=== PATIENT | male | born 1950 | race Caucasian/White ===

== ENCOUNTER 2023-07-11 18:32 | Inpatient (IN) ==
[2023-07-11] MEDS ORDERED: IOPAMIDOL 100 ML BOTTLE IV ONE (18:33)
[2023-07-11] MEDS ORDERED: ACETAMINOPHEN 325 MG TABLET PO ONE (19:17)
[2023-07-11] MEDS ORDERED: 0.9 % SODIUM CHLORIDE 1,000 ML IV ONE (19:17)
[2023-07-11 19:41] LABS: POC Calcium, Ionized 1.16 (1.16-1.32); POC Creatinine 0.8 (0.6-1.2); POC Potassium 4.1 (3.3-5.1)
[2023-07-11 20:19] LABS: Basophils # (Auto) 0.01 K/mcL (0.00-0.30); Basophils % (Auto) 0.1 % (0.0-2.0); Eosinophils # (Auto) 0 K/mcL (0.00-0.70); Eosinophils % (Auto) 0 % (0.0-7.0); Hematocrit 34.6 % (40.1-51.0); Hemoglobin 12.1 g/dL (13.7-17.5); Lymphocytes # (Auto) 0.61 K/mcL (1.50-4.80); Lymphocytes % (Auto) 6.2 % (15.5-49.0); Mean Cell Volume 95.8 fL (80.0-100.0); Mean Platelet Volume 9.9 fL (8.8-12.5); Monocytes # (Auto) 0.76 K/mcL (0.10-0.90); Monocytes % (Auto) 7.7 % (1.0-12.0); Neutrophils % (Auto) 85.3 % (38.0-78.0); Platelet Count 184 K/mcL (140-440); RBC 3.61 M/mcL (4.63-6.08); Red Cell Distribution Width 14.3 % (11.5-14.5); WBC 9.9 K/mcL (4.5-11.0)
[2023-07-11 20:22] LABS: Appearance,Urine HAZY (Clear); Bacteria,Urine FEW /hpf (0); Bilirubin,Urine Negative (Negative); Color,Urine YELLOW; Culture Indicated,Urine Yes; Glucose,Urine (UA) Negative (Negative); Ketones,Urine 5 mg/dL (Negative); Leukocyte Esterase,Urine 250 /uL (Negative); Mucus,Urine FEW /hpf; Nitrate,Urine Negative (Negative); Protein,Urine 30 mg/dL (Negative); Urine RBC 88 /hpf (0-3); Urine Squamous Epithelial Cell 0 /hpf (0-4); Urine Transitional Epi Cells < 1 /hpf (0-2); Urine WBC > 182 /hpf (0-4); Urobilinogen,Urine Negative
[2023-07-11 20:34] LABS: ALT/SGPT 12 U/L (<40); AST/SGOT 22 U/L (<40); Albumin 3.3 gm/dL (3.2-5.2); Alkaline Phosphatase 56 U/L (39-117); Bilirubin,Direct 0.5 mg/dL (<0.3)
[2023-07-11 22:44] LABS: Sodium, Urine Random 50 mmol/L
[2023-07-11 22:50] LABS: Osmolality,Urine 334 mOSM/kg (80-1000)
[2023-07-11] MEDS ORDERED: HYDROcodone/APAP 5/325MG TABLET PO ONE (22:58)
[2023-07-11] MEDS ORDERED: cefTRIAXone 2 GM VIAL ONE (23:06)
[2023-07-11] MEDS ORDERED: hydrALAZINE 20 MG/ML VIAL IV PRN (23:06)
[2023-07-11] MEDS: cefTRIAXone 2 GM in DEXTROSE 5% IN WATER 50 ML IV SCH (23:15)
[2023-07-12] MEDS ORDERED: ONDANSETRON 4 MG/2 ML VIAL IV PRN (00:47)
[2023-07-12] MEDS: 0.9 % SODIUM CHLORIDE 1,000 ML IV SCH ×2 (01:04→11:19)
[2023-07-12] MEDS ORDERED: traZODone HCL 50 MG TABLET ONE (01:26)
[2023-07-12] MEDS ORDERED: KETOROLAC 30 MG/ML VIAL ONE (01:26)
[2023-07-12] MEDS: traZODone HCL 50 MG TABLET PO PRN ×2 (01:37→20:37)
[2023-07-12] MEDS: KETOROLAC 30 MG/ML VIAL IV PRN ×3 (01:37→20:36)
[2023-07-12] MEDS: 0.9 % SODIUM CHLORIDE 10 ML SYRINGE IV SCH ×3 (04:03→20:31)
[2023-07-12] MEDS ORDERED: HYDROmorphone 0.5 MG/0.5 ML SYRINGE ONE (04:14)
[2023-07-12] MEDS ORDERED: ACETAMINOPHEN 325 MG TABLET PO ONE (04:14)
[2023-07-12] MEDS: HYDROmorphone 0.5 MG/0.5 ML SYRINGE IV PRN (04:16)
[2023-07-12] MEDS: ACETAMINOPHEN 325 MG TABLET PO PRN (04:17)
[2023-07-12 06:55] LABS: Basophils # (Auto) 0.01 K/mcL (0.00-0.30); Basophils % (Auto) 0.1 % (0.0-2.0); Eosinophils # (Auto) 0.01 K/mcL (0.00-0.70); Eosinophils % (Auto) 0.1 % (0.0-7.0); Hematocrit 32.2 % (40.1-51.0); Hemoglobin 11.4 g/dL (13.7-17.5); Lymphocytes # (Auto) 0.63 K/mcL (1.50-4.80); Lymphocytes % (Auto) 5.8 % (15.5-49.0); Mean Cell Volume 95.5 fL (80.0-100.0); Mean Corpuscular HGB Conc 35.4 g/dL (31.0-36.0); Mean Platelet Volume 9.7 fL (8.8-12.5); Monocytes # (Auto) 0.91 K/mcL (0.10-0.90); Monocytes % (Auto) 8.4 % (1.0-12.0); Neutrophils % (Auto) 85.2 % (38.0-78.0); Platelet Count 159 K/mcL (140-440); RBC 3.37 M/mcL (4.63-6.08); Red Cell Distribution Width 13.8 % (11.5-14.5); WBC 10.8 K/mcL (4.5-11.0)
[2023-07-12 07:31] LABS: ALT/SGPT 10 U/L (<40); AST/SGOT 19 U/L (<40); Albumin 2.9 gm/dL (3.2-5.2); Albumin/Globulin Ratio 1.1 (1.0-2.3); Alkaline Phosphatase 47 U/L (39-117); Bilirubin,Total 0.6 mg/dL (0.1-1.0); Blood Urea Nitrogen 11 mg/dL (8-23); Calcium 8.6 mg/dL (8.6-10.4); Carbon Dioxide 21 mmol/L (22-30); Chloride 92 mmol/L (96-108); Globulin 2.7 gm/dL (2.2-3.7); Glomerular Filtration Rate 87; Glucose 109 mg/dL (70-105)
[2023-07-12] MEDS: HYDROcodone/APAP 5/325MG TABLET PO PRN ×2 (07:43→17:25)
[2023-07-12] MEDS: OMEPRAZOLE 20 MG CAPSULE PO SCH (07:43)
[2023-07-12] MEDS: FINASTERIDE 5 MG TABLET PO SCH (08:42)
[2023-07-12] MEDS: DOCUSATE SODIUM 100 MG CAPSULE PO SCH ×2 (08:42→20:37)
[2023-07-12] MEDS: TAMSULOSIN 0.4 MG CAPSULE PO SCH (08:42)
[2023-07-12] MEDS ORDERED: FENOFIBRATE 43 MG CAPSULE PO SCH (09:00)
[2023-07-12] MEDS ORDERED: LOSARTAN 25 MG TABLET PO SCH (09:00)
[2023-07-12] MEDS: SODIUM CHLORIDE 1 GM TABLET PO SCH ×3 (11:10→20:38)
[2023-07-12] MEDS: cefTRIAXone 2 GM in DEXTROSE 5% IN WATER 50 ML IV SCH (14:02)
[2023-07-12] MEDS: SENNOSIDES 1 TABLET PO SCH (20:37)
[2023-07-13] MEDS: HYDROcodone/APAP 5/325MG TABLET PO PRN ×3 (00:51→15:16)
[2023-07-13] MEDS ORDERED: METOPROLOL TARTRATE 5 MG/5 ML VIAL IV ONE ×2 (03:45→04:01)
[2023-07-13] MEDS ORDERED: METOPROLOL TARTRATE 5 MG/5 ML VIAL IV PRN (03:49)
[2023-07-13] MEDS ORDERED: ADENOSINE 3 MG/ML VIAL IV ONE ×2 (03:49→08:48)
[2023-07-13] MEDS ORDERED: MAGNESIUM SULFATE 8.12 MEQ/2 ML VIAL IV ONE (04:02)
[2023-07-13] MEDS ORDERED: MAGNESIUM SULFATE 2 GM/50 ML BAG IV ONE (04:09)
[2023-07-13] MEDS: KETOROLAC 30 MG/ML VIAL IV PRN (04:36)
[2023-07-13] MEDS: HYDROmorphone 0.5 MG/0.5 ML SYRINGE IV PRN ×3 (04:38→15:55)
[2023-07-13] MEDS: ACETAMINOPHEN 325 MG TABLET PO PRN (04:39)
[2023-07-13] MEDS ORDERED: ESMOLOL 250 ML IV ONE (04:43)
[2023-07-13] MEDS ORDERED: 0.9 % SODIUM CHLORIDE 250 ML IV SCH (04:45)
[2023-07-13] MEDS: ESMOLOL 2,500 MG in PREMIX 1 BAG IV SCH ×3 (04:50→21:54)
[2023-07-13] MEDS: 0.9 % SODIUM CHLORIDE 10 ML SYRINGE IV SCH ×3 (05:05→20:00)
[2023-07-13 07:09] LABS: Basophils # (Auto) 0.01 K/mcL (0.00-0.30); Basophils % (Auto) 0.1 % (0.0-2.0); Eosinophils # (Auto) 0.05 K/mcL (0.00-0.70); Eosinophils % (Auto) 0.6 % (0.0-7.0); Hemoglobin 11.5 g/dL (13.7-17.5); Lymphocytes # (Auto) 0.53 K/mcL (1.50-4.80); Lymphocytes % (Auto) 6.3 % (15.5-49.0); Mean Cell Volume 98.3 fL (80.0-100.0); Mean Corpuscular HGB Conc 33.8 g/dL (31.0-36.0); Mean Platelet Volume 9.4 fL (8.8-12.5); Monocytes # (Auto) 0.51 K/mcL (0.10-0.90); Neutrophils % (Auto) 86.4 % (38.0-78.0); Platelet Count 195 K/mcL (140-440); RBC 3.46 M/mcL (4.63-6.08); WBC 8.4 K/mcL (4.5-11.0)
[2023-07-13 07:14] LABS: ALT/SGPT 15 U/L (<40); AST/SGOT 33 U/L (<40); Albumin 2.7 gm/dL (3.2-5.2); Albumin/Globulin Ratio 0.9 (1.0-2.3); Alkaline Phosphatase 68 U/L (39-117); Bilirubin,Direct 0.2 mg/dL (<0.3); Bilirubin,Total 0.5 mg/dL (0.1-1.0); Blood Urea Nitrogen 16 mg/dL (8-23); Calcium 8.7 mg/dL (8.6-10.4); Carbon Dioxide 18 mmol/L (22-30); Chloride 95 mmol/L (96-108); Globulin 2.9 gm/dL (2.2-3.7); Glomerular Filtration Rate 83; Glucose 105 mg/dL (70-105); Lactate Dehydrogenase 192 U/L (135-225); Phosphorous 2.7 mg/dL (2.5-4.5); Triglycerides 78 mg/dL (<150); Uric Acid 3.7 mg/dL (2.5-8.0)
[2023-07-13] MEDS ORDERED: ENOXAPARIN 80 MG/0.8 ML SYRINGE SQ ONE (07:30)
[2023-07-13] MEDS ORDERED: LABETALOL HCL 20 MG/4 ML VIAL IV PRN (07:35)
[2023-07-13] MEDS: OMEPRAZOLE 20 MG CAPSULE PO SCH (07:58)
[2023-07-13] MEDS: DOCUSATE SODIUM 100 MG CAPSULE PO SCH ×2 (08:50→20:02)
[2023-07-13] MEDS: TAMSULOSIN 0.4 MG CAPSULE PO SCH (08:50)
[2023-07-13] MEDS: FINASTERIDE 5 MG TABLET PO SCH (08:50)
[2023-07-13] MEDS: SODIUM CHLORIDE 1 GM TABLET PO SCH ×3 (08:50→20:02)
[2023-07-13] MEDS: SODIUM BICARBONATE 650 MG TABLET PO SCH ×3 (08:50→20:02)
[2023-07-13] MEDS: cefTRIAXone 2 GM in DEXTROSE 5% IN WATER 50 ML IV SCH (08:50)
[2023-07-13] MEDS ORDERED: ALBUMIN HUMAN 12.5 GM/50 ML VIAL IV ONE (16:16)
[2023-07-13] MEDS ORDERED: FUROSEMIDE 40 MG/4 ML VIAL IV ONE (16:16)
[2023-07-13] MEDS: SENNOSIDES 1 TABLET PO SCH (20:02)
[2023-07-13] MEDS: HYDROCODONE/APAP 7.5/325MG TABLET PO PRN (20:02)
[2023-07-14] MEDS: HYDROCODONE/APAP 7.5/325MG TABLET PO PRN ×4 (00:27→13:29)
[2023-07-14] MEDS: KETOROLAC 30 MG/ML VIAL IV PRN ×2 (02:09→08:21)
[2023-07-14] MEDS: 0.9 % SODIUM CHLORIDE 10 ML SYRINGE IV SCH ×2 (05:04→14:21)
[2023-07-14 07:25] LABS: Blood Urea Nitrogen 19 mg/dL (8-23); Calcium 8.7 mg/dL (8.6-10.4); Carbon Dioxide 23 mmol/L (22-30); Chloride 98 mmol/L (96-108); Glomerular Filtration Rate 83; Glucose 91 mg/dL (70-105)
[2023-07-14] MEDS: TAMSULOSIN 0.4 MG CAPSULE PO SCH (08:10)
[2023-07-14] MEDS: FINASTERIDE 5 MG TABLET PO SCH (08:13)
[2023-07-14] MEDS: cefTRIAXone 2 GM in DEXTROSE 5% IN WATER 50 ML IV SCH (08:14)
[2023-07-14] MEDS: OMEPRAZOLE 20 MG CAPSULE PO SCH (08:14)
[2023-07-14] MEDS: ESMOLOL 2,500 MG in PREMIX 1 BAG IV SCH (08:43)
[2023-07-14] MEDS ORDERED: ALBUMIN HUMAN 12.5 GM/50 ML VIAL IV SCH (09:07)
[2023-07-14] MEDS ORDERED: FUROSEMIDE 40 MG/4 ML VIAL IV SCH (09:07)
[2023-07-14] MEDS ORDERED: CYCLOBENZAPRINE 10 MG TABLET PO PRN (09:16)
[2023-07-14] MEDS: DOCUSATE SODIUM 100 MG CAPSULE PO SCH (09:21)
[2023-07-21] MEDS ORDERED: METHOTREXATE SODIUM 2.5 MG TABLET PO SCH (09:00)
== END 2023-07-14 14:55 | disposition home or self-care (01) | DRG 872 ==
LOC: ED 18:32 → MEDSUR 07-12 00:26 → ICU 07-13 04:10
PROVIDERS: ADMIT Internal Medicine; ATTEND Internal Medicine